=== PATIENT | male | born 1960 | race Caucasian/White ===

== ENCOUNTER 2017-11-19 11:52 | Emergency (ER) | payer OTHER ==
[~2017-11-19] VITALS: Ht 177.8 cm; Wt 77.3 kg
[~2017-11-19 11:52] MED LIST: HYDROCODONE-APA1 TAB PO
[2017-11-19 12:06] VITALS: Ht 177.8 cm; Wt 77.3 kg
[2017-11-19] MEDS ORDERED: TORADOL10 MG PO (15:23)
[2017-11-19] MEDS ORDERED: ROBAXIN500 MG PO (15:23)
[2017-11-19 16:00] VITALS: BP 160/85
== END 2017-11-19 16:03 | disposition home or self-care (01) ==
LOC: D.ER 11:52
DX: S20.211A Contusion of right front wall of thorax, initial encounter (principal); W18.30XA Fall on same level, unspecified, initial encounter; Y93.K1 Activity, walking an animal; Y92.019 Unspecified place in single-family (private) house as the place of occurrence of the external cause; S29.012A Strain of muscle and tendon of back wall of thorax, initial encounter